=== PATIENT | female | born 1980 | race Hispanic/Latino ===

== ENCOUNTER 2019-07-23 16:22 | Emergency (ER) | payer OTHER ==
[~2019-07-23 16:22] MED LIST: AMOX500C2 PO; FERR15DR26 PO; [UNRECOGNIZED DRUG - CODE] PO
[2019-07-23] MEDS ORDERED: TETANUS/DIPHTHERIA TOXOID [ADULT] 0.5 ML VIAL IM ONE (17:03)
== END 2019-07-23 18:04 | disposition home or self-care (01) ==
LOC: EDH 16:22
DX: S01.01XA Laceration without foreign body of scalp, initial encounter (principal); I10 Essential (primary) hypertension; Z98.890 Other specified postprocedural states; W20.8XXA Other cause of strike by thrown, projected or falling object, initial encounter; Y93.89 Activity, other specified; Y92.61 Building [any] under construction as the place of occurrence of the external cause; Y99.8 Other external cause status
CPT/HCPCS: 90471; 90714

== ENCOUNTER → 2023-07-22 | Outpatient (CLI) | payer BC | END | disposition home or self-care (01) | LOC: RAH 13:05 | PROVIDERS: ATTEND Family Medicine | DX: M25.562 Pain in left knee (principal) | CPT/HCPCS: 73562 ==

== ENCOUNTER 2025-10-01 21:25 | Emergency (ER) | payer BC ==
[~2025-10-01] VITALS: Ht 162.6 cm; Wt 102.1 kg
[~2025-10-01 21:25] MED LIST changes: +IBUP-1493 PO
--- NOTE | 2025-10-01 21:32 | NUR ---
UA CUP PROVIDED
--- NOTE | 2025-10-01 21:53 | NUR ---
UA COLLECTED AND SENT
--- NOTE | 2025-10-02 00:07 | NUR ---
REPORT TO MANDEEP BEAULIEU
[2025-10-02] MEDS ORDERED: KETO10TA2 PO (00:54)
--- NOTE | 2025-10-02 00:54 | ERN ---
General Chief Complaint: Back Pain-No Injury Stated Complaint: BACK PAIN Time Seen by MD: 21:35 Time Seen by Midlevel: 21:35 Source: patient History of Present Illness Initial Comments The patient is a 45-year-old female with a past medical history of hypertension on lisinopril and verapamil presenting to the emergency department for evaluation of lower back pain. The patient states she had gotten up from her chair and felt like she pulled a muscle. This occurred yesterday. She states this occurs at least once a year and normally resolves after she sees her paint brush maker and is prescribed stronger pain medication. She does report being noncompliant with her antihypertensives. Allergies: Coded Allergies: No Known Allergies (Unverified Allergy, Unknown, 04/04/15) Home Meds Active Scripts Ibuprofen (Motrin/Advil) 800 Mg Tab, 800 MG PO TID, #30 TAB Prov:LEW MEZA MD 07/26/23 Reported Medications Labetalol HCl (Trandate) 100 Mg Tablet, 100 MG PO BID, TAB 04/08/15 Ferrous Sulfate (Iron) 15 Mg/1 Ml Drops, PO DAILY, DROP 04/04/15 Amoxicillin (Amoxicillin) 500 Mg Capsule, 500 MG PO BID, CAP 04/04/15 Past Medical History Past Medical History: Anxiety, High Cholesterol, Hypertension Past Surgical History: BTL, ROS Dictation CONSTITUTIONAL: Negative except for HPI HEAD/FACE: Negative except for HPI EENT: Negative except for HPI RESPIRATORY: Negative except for HPI GASTROINTESTINAL/ABDOMINAL: Negative except for HPI GENITOURINARY: Negative except for HPI MUSCULOSKELETAL: Negative except for HPI INTEGUMENTARY: Negative except for HPI NEUROLOGICAL/PSYCH: Negative except for HPI HEMATOLOGIC/LYMPHATIC: Negative except for HPI All Systems Negative, Except as noted above. 13 point review of systems assessed and all negative except for above. Physical Exam Physical Exam Dictation Vital Signs reviewed General Appearance: Alert, oriented x 3, no acute distress, well developed, nourished. Head and Face: non-traumatic. Eyes: PERRL, pink conjunctivas, eyelid no trauma, anterior chamber with arcus senilis. Ears: Pinnas intact and no signs of trauma or erythema ear canals clear and no discharge TM no erythema Nose: No discharge, no bleeding. Oropharynx: Mouth normal, tongue pink, pharynx clear,no erythema, tonsils no exudates, no abscesses noted, mucous membrane moist Neck: Supple, non-tender, no thyromegaly, no masses, no JVD, no bruits Breast:Deferred Chest:No tenderness, no crepitus, no paradoxical movement, no retractions Lungs:Clear, well-ventilated, symmetric, no rales, no wheezing, no rhonchi, no stridor, good breath sounds bilaterally Heart: Regular rate, regular rhythm, no murmur, no gallops Vascular: no peripheral edema, Abdomen: Soft, positive bowel sounds, nondistended, no guarding, nontender, no rebound, no masses no hepatomegaly, no splenomegaly, no Marie's sign, no hernias. Rectal: Deferred Genital: Deferred Neurological: Normal speech, motor function intact, sensory function intact Musculoskeletal: Neck nontender, full range of motion, back nontender, full range of motion, Extremities: nontender, full range of motion Skin: Color pink, dry, no turgor, no rash, no lacerations, no abrasions, no contusions. Lymphatic: Deferred MDM MDM: Differential diagnosis: Lumbar strain, chronic pain, sciatica There are no social concerns with this patient. Prescription drug management Prescriptions will include: Toradol Medical management and examination interpretation discussions were had by me with other qualified healthcare professionals as indicated for the patient's care. ED Course Orders Procedure Category Date Status Time Morphine 4mg Syg PHA 10/02/25 Complete (Morphine 4mg Syg) 00:30 Ketorolac PHA 10/02/25 Complete Tromethamine 15mg/Ml 00:30 Clonidine Hcl 0.1 Mg PHA 10/02/25 In Process Tablet (Catapres 0. 01:00 Current Medications Medications (Trade) Dose Ordered Sig/Lang Route PRN Reason Start Time Stop Time Status Last Admin Dose Admin Clonidine HCl (CATApres 0.1 mg TAB) 0.1 mg ONCE ONCE PO 10/02/25 01:00 10/02/25 01:01 Ketorolac Tromethamine (toRADol) 15 mg ONCE ONCE IM 10/02/25 00:30 10/02/25 00:31 DC Morphine Sulfate (morPHINE 4MG SYG) 4 mg ONCE ONCE IM 10/02/25 00:30 10/02/25 00:31 DC Vital Signs Date Time Temp Pulse Resp B/P (MAP) Pulse Ox O2 Delivery O2 Flow Rate FiO2 10/02/25 00:32 97.9 71 18 207/94 97 Room Air* 0 21 10/01/25 21:32 98.1 77 18 186/87 98 Room Air DX & DISP Disposition: Discharge Departure Impression: Primary Impression: Low back pain Additional Impressions: Elevated blood pressure reading, Noncompliance with medications Condition: Stable Scripts Ketorolac Tromethamine (Ketorolac Tromethamine) 10 Mg Tablet 1 TAB PO BID for pain for 5 Days, #10 TAB 0 Refills Prov: SHEKHAR ALMANZA PAC 10/02/25 Referrals: KEISHA MARIN MD (PCP) I have reviewed the case, and I agree with, Diagnosis and Plan I performed the substantive portion of the visit. I have reviewed and person ally made and approve the management plan that is documented in the note by myself or the CHANG. I acknowledge for responsibility for the patient's management plan. SHEKHAR ALMANZA PAC Oct 02, 2025 00:54
[2025-10-02 01:56] VITALS: BP 176/85; PULSE 68; RESP 18; TEMP 97.8; O2SAT 98
== END 2025-10-02 02:06 | disposition home or self-care (01) ==
LOC: EDH 21:25
DX: M54.50 Low back pain, unspecified (principal); I10 Essential (primary) hypertension; E78.00 Pure hypercholesterolemia, unspecified; F41.9 Anxiety disorder, unspecified; Z91.148 Patient's other noncompliance with medication regimen for other reason; Z79.1 Long term (current) use of non-steroidal anti-inflammatories (NSAID); Z79.899 Other long term (current) drug therapy
CPT/HCPCS: 99284; 96372 ×2; J1885; J2270 ×2